=== PATIENT | female | born 1970 | race Caucasian/White ===

== ENCOUNTER 2020-10-27 10:57 | Outpatient (REF) | payer OTHER, SELFPAY | END 2020-10-27 10:58 | disposition home or self-care (01) | LOC: HO.LAB 10:57 | PROVIDERS: Visit Provider Internal Medicine | DX: Z20.822 Contact with and (suspected) exposure to COVID-19 (principal) | CPT/HCPCS: 36415; C9803; U0003; U0005 ==

== ENCOUNTER 2021-03-24 11:20 | Emergency (ER) | payer OTHER, SELFPAY ==
[2021-03-24 11:28] VITALS: BP 141/94; PULSE 92; RESP 17; TEMP 36.3; O2SAT 98; BMI 31.8
--- NOTE | 2021-03-24 11:30 | ED_ITS ---
HPI - Psych General Chief Complaint: Anxiety Stated Complaint: anxiety Time Seen by Provider: 03/24/21 11:29 Source: patient Mode of arrival: ambulatory Limitations: no limitations History of Present Illness complaint: anxiety Onset (ago): minute(s) Duration: resolved prior to arrival History of same: Yes Relieving factors: none Exacerbating factors: none Context: other (was stuck in an elevator with her sister for 45 minutes and had a panic attack) Associated psychiatric symptoms: none Associated symptoms: denies other symptoms Treatments prior to arrival: none Related Data Allergies Allergy/AdvReac Type Severity Reaction Status Date / Time penicillin V Allergy Unknown Unknown Verified 07/27/20 12:51 Penicillins [PENICILLINS] Allergy Unknown RASH Verified 07/27/20 12:51 Review of Systems Review of Systems: Constitutional : No Fever, No Chills ENT/Mouth : No Ear Pain, No Nasal Congestion Eyes: No Eye Pain, No Swelling, No Redness Cardiovascular : No Chest Pain, No SOB Respiratory : No Cough, No Sputum, No Dyspnea Gastrointestinal : No Nausea, No Vomiting, No Diarrhea Musculoskeletal : No Myalgias Skin : No Skin Lesions, No rash Neuro : No Weakness, No Numbness, No Paresthesias, No Dizziness, No Headache Psych : positive Anxiety, no Depression, no SI/HI Heme/Lymph: No Lymphadenopathy Endocrine : No Polyuria, No Polydipsia All other systems reviewed and are negative [facility] Past Medical History Attestation statement: The following information was validated with the patient. Medical History Anxiety Depression Surgical History (Updated 07/27/20 @ 12:52 by LIANE Murray, JULY) History of laparoscopic cholecystectomy History of tubal ligation Family History Family History (Updated 07/27/20 @ 12:56 by LIANE Murray, JULY) Father HTN (hypertension) High cholesterol Mother HTN (hypertension) High cholesterol Diabetes mellitus Heart problem Maternal Grandfather Cancer of prostate Maternal Grandmother Cancer of prostate Throat cancer Paternal Grandfather No problems noted. Paternal Grandmother Throat cancer Social History Social History (Updated 03/24/21 @ 11:40 by Valentina Slade DO) Patient Tobacco Use Status: Never used Tobacco Use of substances other than those prescribed or required for medical reasons: No Physical Exam Vital Signs: Appearance: Alert. Oriented X3. No acute distress. Anxious Eyes: Pupils equal, round and reactive to light. ENT: Pharynx normal. Neck: Normal inspection. Neck supple. CVS: Normal heart rate and rhythm. Pulses normal. Respiratory: No respiratory distress. Breath sounds normal. Abdomen: Soft and non-tender. Skin: Skin warm and dry. Normal skin color. Normal skin turgor. Extremities: No lower extremity edema. No calf ttp Neuro: Oriented X 3. No motor deficit. No sensory deficit. MDM - Psych MDM Narrative Medical decision making narrative: 50 yo female with hx of anxiety and depression here with panic attack after being stuck in an elevator for 45 minutes - she is calm now, VS stable, PO ativan for anxiety and the day off from work. She is otherwise not toxic and doing much better - she feels safe for DC Discharge Plan Discharge Clinical Impression: Panic attack Patient Disposition: Home, Self-Care Instructions: Panic Attack (ED) Additional Instructions: return to ED for any worsening symptoms or concerns Stand Alone Forms: Work/School Release Print Language: [place] Citizen
[2021-03-24] MEDS: LORazepam 1 MG TABLET PO (11:49)
== END 2021-03-24 12:05 | disposition home or self-care (01) ==
LOC: HO.ED 11:45
PROVIDERS: Emergency Provider Emergency Medicine; PCP Internal Medicine
DX: F41.0 Panic disorder [episodic paroxysmal anxiety] (principal)
CPT/HCPCS: 99283

== ENCOUNTER 2021-07-07 12:45 | Emergency (ER) | payer OTHER, SELFPAY ==
[2021-07-07 13:14] VITALS: BP 108/68; PULSE 98; RESP 18; TEMP 36.6; O2SAT 99; BMI 32.8
[2021-07-07] MEDS: LORazepam 1 MG TABLET PO (14:19)
[2021-07-07] MEDS: oxyCODONE HCl Immed Release 5 MG TABLET PO (14:20)
[2021-07-07] MEDS: cephALEXin 500 MG CAPSULE PO (14:22)
--- NOTE | 2021-07-07 15:43 | ED.SKABFB ---
HPI - Skin/Abscess/Foreign Bdy General Chief complaint: Skin/Abscess/Foreign Body Stated complaint: cyst? Time Seen by Provider: 07/07/21 14:00 Source: patient Mode of arrival: ambulatory Limitations: language barrier ([place]-speaking) History of Present Illness complaint: abscess/boil Onset (ago): day(s) (For the past few days worse today) Location: RUE (Right axillary) Severity: severe Severity scale (1-10): >10 Quality: aching and constant Pain Consistency: constant Relieving factors: none Exacerbating factors: palpation Context: none Associated symptoms: denies other symptoms Treatments prior to arrival: none Related Data Previous Rx's Medication Instructions Recorded cephalexin 500 mg capsule 500 mg PO Q6H 10 Days #40 cap 07/07/21 doxycycline hyclate 100 mg tablet 100 mg PO BID 10 Days #20 tab 07/07/21 lorazepam 1 mg tablet (Ativan) 1 mg PO Q8H PRN #10 tab 07/07/21 oxycodone 5 mg tablet 5 mg PO Q6H PRN #14 tab 07/07/21 Allergies Allergy/AdvReac Type Severity Reaction Status Date / Time penicillin V Allergy Unknown Unknown Verified 07/07/21 13:13 Penicillins [PENICILLINS] Allergy Unknown RASH Verified 07/07/21 13:13 Review of Systems Review of Systems: Constitutional : No Fever, No Chills, Cardiovascular : No Chest Pain, No SOB Respiratory : No Dyspnea Gastrointestinal : No abdominal pain Musculoskeletal : No Joint Swelling Skin : positive skin abscess with surrounding erythema, no laceration, No Foreign bodies, No rash Neuro : No Weakness, No Numbness/tingling Psych : No SI/HI/thoughts of self injury Yes all other systems are reviewed and are negative [facility] Past Medical History Attestation statement: The following information was validated with the patient. Medical History Anxiety Depression Surgical History History of laparoscopic cholecystectomy History of tubal ligation Family History Family History Father HTN (hypertension) High cholesterol Mother HTN (hypertension) High cholesterol Diabetes mellitus Heart problem Maternal Grandfather Cancer of prostate Maternal Grandmother Cancer of prostate Throat cancer Paternal Grandfather No problems noted. Paternal Grandmother Throat cancer Social History Social History Patient Tobacco Use Status: Never used Tobacco Advance Directives: No Physical Exam Vital Signs: Vital Signs: Last Vital Signs Temp 97.8 F 07/07/21 13:14 Pulse 98 07/07/21 13:14 Resp 18 07/07/21 13:14 BP 108/68 07/07/21 13:14 Pulse Ox 99 07/07/21 13:14 Body Mass Index 32.8 vital signs have been reviewed as normal and appeared to be correct. Blood pressure normal Heart rate normal. Respiration rate normal. Temperature normal. Oxygen saturation normal. Appearance: Alert. Oriented X3. No acute distress. Head: Normal external exam. Normocephalic. Atraumatic. Eyes: PERRLA. EOMI. Conjunctiva and sclera normal. Eyelids normal. ENT: Pharynx normal. Uvula midline. Moist mucous membranes. Neck: Normal inspection. Neck supple. FROM. CVS: Normal heart rate and rhythm. Respiratory: No respiratory distress. Painless inspiration. Skin: Skin warm and dry. Normal skin color. Normal skin turgor. Tender medium size fluctuant abscess to right axillary with moderate surrounding erythema. No streaking noted. No additional rashes/lesions/lacerations noted. Extremities: No lower extremity edema. Extremities exhibit normal range of motion. Extremities nontender. Neuro: Oriented X 3. No motor deficit. No sensory deficit. Reflexes normal. Normal steady gait. No focal neuro deficits noted. Vascular: + radial pulses/+ 2 distal pedal pulses/+2 dorsalis pedis b/l. Normal cap refill. No cyanosis noted to upper extremity nails and lower extremity toes nails. Course Course Course Narrative: Patient now status post I&D to right axilla she did not want lidocaine therefore I used 11 inch scapel I provided 1 mg of Ativan and 5 mg oxycodone and patient tolerated procedure well. No complications. Will DC home with symptomatic treatment antibiotics and instructions return if any new or worsening symptoms and to follow up with primary care provider. Patient understands agrees with this plan. MDM - Skin/Abscess/Foreign Bdy Medical Records Attestation: I reviewed the patient's medical records. Procedures Abscess I/D Site: upper extremity (Right axillary) Side (if applicable): right Technique: incised with blade Amount of fluid expressed (mL): 10 Sent for culture/gram staining?: No Irrigation: Yes Packing used?: none Complications: other (No complications patient tolerated procedure well) Discharge Plan Discharge Clinical Impression: Cellulitis, Abscess of skin or subcutaneous tissue Patient Disposition: Home, Self-Care Instructions: Cellulitis (ED), Abscess Incision and Drainage (DC), Warm Compress or Soak (ED) Prescriptions: New doxycycline hyclate 100 mg tablet 100 mg PO BID 10 Days Qty: 20 RF: 0 cephalexin 500 mg capsule 500 mg PO Q6H 10 Days Qty: 40 RF: 0 lorazepam [Ativan] 1 mg tablet 1 mg PO Q8H PRN (Reason: anxiety) Qty: 10 RF: 0 oxycodone 5 mg tablet 5 mg PO Q6H PRN (Reason: pain) Qty: 14 RF: 0 Referrals: Ariadne Chin MD [Primary Care Provider] - 2 days Stand Alone Forms: Work/School Release Print Language: [place]
== END 2021-07-07 15:52 | disposition home or self-care (01) ==
PROVIDERS: Emergency Provider Emergency Medicine Emergency Medical Services; PCP Internal Medicine
DX: L02.411 Cutaneous abscess of right axilla (principal); L03.111 Cellulitis of right axilla
CPT/HCPCS: 10060; 99283